=== PATIENT | female | born 1955 | race Caucasian/White ===

== ENCOUNTER 2017-09-01 07:33 | Day surgery (SDC) | payer BC ==
[2017-08-28 15:10] VITALS: BMI 41.5
[2017-09-01] MEDS ORDERED: LIDOCAINE 1%/EPI 1:100000 (20 ML MULTI DOSE VIAL) ONE (07:44)
[2017-09-01] MEDS ORDERED: MICROFIBRILLAR COLLAGEN 1 GM EACH ONE (07:44)
[2017-09-01] MEDS ORDERED: MIDAZOLAM HCL 2 MG/2 ML SINGLE DOSE VIAL ONE (08:47)
[2017-09-01] MEDS ORDERED: DEXAMETHASONE SOD PHOSPHATE 4 MG/1 ML VIAL ONE (09:43)
[2017-09-01] MEDS ORDERED: KETOROLAC TROMETHAMINE 30 MG/1 ML VIAL ONE (09:43)
[2017-09-01] MEDS ORDERED: ROCURONIUM BROMIDE 50 MG/5 ML VIAL ONE (09:44)
[2017-09-01] MEDS ORDERED: PROPOFOL 20 ML ONE (09:44)
[2017-09-01] MEDS ORDERED: SUCCINYLCHOLINE CHLORIDE 200 MG/10 ML VIAL ONE (09:44)
[2017-09-01] MEDS ORDERED: ceFAZolin SODIUM 1 GM VIAL IVPB ONE ×2 (09:53)
[2017-09-01] MEDS ORDERED: BUPIVACAINE HCL/PF 0.5% (5MG/ML) 10 ML VIAL ONE (09:59)
[2017-09-01] MEDS ORDERED: LIDOCAINE 1%/EPI 1:100000 (20 ML MULTI DOSE VIAL) IJ ONE ×2 (10:11)
[2017-09-01] MEDS ORDERED: ePHEDrine SULFATE 50 MG/1 ML AMPULE ONE (10:43)
[2017-09-01] MEDS ORDERED: PROMETHAZINE HCL 25 MG/1 ML VIAL IVPUSH PRN (11:23)
[2017-09-01] MEDS ORDERED: ONDANSETRON 4 MG/2 ML VIAL IVPUSH PRN (11:23)
[2017-09-01] MEDS ORDERED: oxyCODONE HCL 5 MG TABLET PO PRN (11:23)
[2017-09-01] MEDS ORDERED: LACTATED RINGERS SOLUTION 1,000 ML IV SCH ×2 (11:30→11:45)
--- NOTE | 2017-09-01 11:36 | SURG ---
Surgery Glue Cook Note Glue Cook: Aislinn Cabrera PA-C Date of Service: 09/01/17 Diagnosis: Right Thyroid Nodule Procedure: Right hemithyroidectomy I was present for the entirety of the operative procedure. For further detail, please refer to operative report. Visit type - Case Type Case Type: Scheduled Admission - Emergency Emergency Visit: No - New patient This patient is new to me today: Yes Date on this admission: 09/01/17
--- NOTE | 2017-09-01 12:21 | OP ---
Operative Note - Note: Operative Date: 09/01/17 Pre-Operative Diagnosis: Right thyroid Nodule Operation: Right hemithyroidectomy Post-Operative Diagnosis: Same as Pre-op Surgeon: Catalino Hull Production Superintendent Hydro: Aislinn Cabrera Anesthesiologist/BUN MACHINE OPERATOR: Xavi Al Anesthesia: General Specimens Removed: Right thyroid Lobe Estimated Blood Loss (mls): 10 Fluid Volume Replaced (mls): 1,000 Operative Report Dictated: Yes
[2017-09-01 12:26] VITALS: TEMP 97.9
[2017-09-01] MEDS ORDERED: ONDANSETRON 4 MG/2 ML VIAL ONE (12:37)
[2017-09-01] MEDS ORDERED: IBUPROFEN 200 MG TABLET PO SCH (14:00)
[2017-09-01 15:04] VITALS: BP 129/67; PULSE 85
--- NOTE | 2017-09-02 08:25 | OP ---
DATE OF OPERATION: 09/01/2017 SURGICAL ATTENDING: Monica Collins MD VICE PRESIDENT OF NURSING: MARIAELENA Joe PREOPERATIVE DIAGNOSIS: Thyroid nodule. POSTOPERATIVE DIAGNOSIS: Thyroid nodule. ANESTHESIA: General endotracheal. PROCEDURE: 1. Right hemithyroidectomy. 2. Neck ultrasound. DESCRIPTION OF PROCEDURE: Patient was taken into the operating room, placed in the supine position, endotracheally intubated. Neck ultrasound was performed showing the large right thyroid nodule and a smaller left thyroid nodule with no adenopathy. The patient was then prepped and draped in the usual sterile fashion. Local anesthesia was injected, and a 5-cm horizontal incision was made in the mid-neck skin crease and carried down through subcutaneous tissues and platysma. Subplatysmal flaps were raised superiorly and inferiorly, and flap hooks were placed for exposure. The mean raphe was incised, and the right-sided strap muscles were elevated off the thyroid gland. The recurrent laryngeal nerve and superior laryngeal nerves were identified and preserved. The parathyroid tissue was also preserved intact. The superior, posterior, and inferior attachments were transected with the LigaSure, as was the isthmus. In this way, the right thyroid lobe was removed and sent to Pathology for evaluation. It was checked for parathyroid tissue, and none was found before removing from the field. Hemostasis was achieved with electrocautery and Fibrillar. The wound was then closed in three layers. Dermabond was placed. The patient was then extubated, awakened, and taken to recovery in stable condition. Dr. Collins and assistant manager bilingual, Aislinn Valencia, were present throughout the entire procedure. MONICA COLLINS M.D. [id number]
[2017-09-02] MEDS ORDERED: LISINOPRIL 10 MG TABLET (FP) PO SCH (10:00)
[2017-09-02] MEDS ORDERED: HYDROCHLOROTHIAZIDE 12.5 MG CAPSULE (FP) PO SCH (10:00)
--- NOTE | 2017-09-04 14:50 | PATH ---
Surgical Pathology Report Patient Name: KEYSHAWN COLE [facility]. Rec. #: [id number] /Age/Gender: 1955 (Age: 61) / F Account: [id number] Location: [facility] SURGICAL Taken: 09/01/2017 Received: 09/01/2017 Reported: 09/04/2017 Physicians: Catalino uHll M.D. Specimen(s) Received RIGHT THYROID LOBE Clinical History Thyroid nodule Final Diagnosis THYROID, RIGHT LOBE, LOBECTOMY: FOLLICULAR VARIANT OF PAPILLARY THYROID CARCINOMA, SINGLE FOCUS, 0.4 CM IN GREATEST DIMENSION, PARTIALLY ENCAPSULATED, AND LIMITED TO THE THYROID. NO CAPSULAR INVASION, AND VASCULAR INVASION, OR EXTRATHYROIDAL EXTENSION IDENTIFIED. ONE ATTACHED BENIGN LYMPH NODE IDENTIFIED (0/1). REMAINING THYROID TISSUE SHOWS MULTINODULAR GOITER. Comment: This report was faxed to Dr. Hull on 09/04/2017. Comments Thyroid carcinoma: Surgical Pathology Cancer Case Summary (Checklist) Based on AJCC/UICC TNM, 7th edition Procedure _X__ Thyroid lobectomy _X__ Right Specimen Integrity _X__Intact Specimen Size Right lobe: 4.0 X 3.3 X 2.3 cm Tumor Focality _X__ Unifocal Dominant Tumor Tumor Laterality _X__ Right lobe Tumor Size Greatest dimension: 0.4 cm Histologic Type _X__ Papillary carcinoma Variant, specify: _X__ Follicular variant Architecture: _X__ Follicular Cytomorphology: _X__ Classical Histologic Grade _X__ G1: Well differentiated Margins _X__ Margins uninvolved by carcinoma Tumor Capsule _X__ Partially encapsulated Tumor Capsular Invasion (select all that apply) _X__ Not identified Lymph-Vascular Invasion _X__ Not identified Extrathyroidal Extension _X__ Not identified Pathologic Staging (pTNM) : pT1a pN0 Electronically Signed Gaetano Thomas M.D. Gross Description Received in formalin labeled "right thyroid lobe," is a 4.0 x 3.3 x 2.3 cm unoriented thyroid lobe. The outer capsule is red-brown and intact. Sectioning reveals a 1.8 x 1.8 x 1.3 cm william, solid, focally hemorrhagic nodule. The remaining thyroid parenchyma is red-brown and beefy. Frame Polisher sections are sequentially submitted in 10 cassettes. After review of the initial sections, all of the remaining tissue is submitted in Cassettes 11 13. 09/02/2017 saudi09/02/2017
== END 2017-09-01 15:05 | disposition home or self-care (01) ==
LOC: JASU-SURG 07:33
PROVIDERS: ATTEND Surgery
PROC: 0GTH0ZZ Resection of Right Thyroid Gland Lobe, Open Approach (ICD-10-PCS; principal; 2017-09-01 09:00)
DX: E04.1 Nontoxic single thyroid nodule (principal)
CPT/HCPCS: 86850; 86900; 86901; 88307-TC; 94760

== ENCOUNTER 2020-11-10 10:39 | Emergency (ER) | payer BC | END 2020-11-10 12:01 | disposition home or self-care (01) | LOC: JVIRT 10:39 | DX: R09.81 Nasal congestion (principal); U07.1 COVID-19 | CPT/HCPCS: C9803; G2012-GT; U0003 ==

== ENCOUNTER 2020-11-12 09:01 | Emergency (ER) | payer BC ==
[2020-11-12 09:07] VITALS: TEMP 98.1; BMI 39.9
[2020-11-12] MEDS ORDERED: CASIRIVIMAB (REGN10933) 1,200 MG, IMDEVIMAB (REGN10987) 1,200 MG in SODIUM CHLORIDE 230 ML IVPB ONE (09:26)
[2020-11-12 10:25] LABS: HEMATOCRIT 41.9 % (32.4-45.2); HEMOGLOBIN 14.1 GM/dL (10.7-15.3); MCH 29.2 pg (25.7-33.7); MCHC 33.5 g/dl (32.0-36.0); MEAN PLT VOLUME 7.3 fl (7.5-11.1); PLATELET COUNT 188 K/MM3 (134-434); RBC 4.82 M/mm3 (3.60-5.2); RDW 13.5 % (11.6-15.6); WHITE BLOOD COUNT 5.6 K/mm3 (4.0-10.0)
[2020-11-12 10:33] LABS: POTASSIUM 4.2 mmol/L (3.5-5.1)
[2020-11-12 10:38] LABS: BLOOD UREA NITROGEN 16.8 mg/dL (7-18); CALCIUM 9.4 mg/dL (8.5-10.1)
[2020-11-12 10:43] LABS: CREATININE 0.8 mg/dL (0.55-1.3)
[2020-11-12] MEDS ORDERED: DEXAMETHASONE SOD PHOSPHATE 10 MG/1 ML VIAL IM ONE (12:20)
[2020-11-12] MEDS ORDERED: DEXAMETHASONE SOD PHOSPHATE 10 MG/1 ML VIAL ONE (12:23)
[2020-11-12 12:54] VITALS: BP 122/60; PULSE 78
== END 2020-11-12 15:52 | disposition home or self-care (01) ==
LOC: JER 09:01
PROC: 3E03329 Introduction of Other Anti-infective into Peripheral Vein, Percutaneous Approach (ICD-10-PCS; principal; 2020-11-12)
PROC: 3E0233Z Introduction of Anti-inflammatory into Muscle, Percutaneous Approach (ICD-10-PCS; 2020-11-12)
PROC: 3E023GC Introduction of Other Therapeutic Substance into Muscle, Percutaneous Approach (ICD-10-PCS; 2020-11-12)
DX: U07.1 COVID-19 (principal)
CPT/HCPCS: 36415; 80048; 85027; 99284-25; J1100; M0243; Q0243